=== PATIENT | female | born 1940 | race Caucasian/White ===

== ENCOUNTER → 2016-10-07 | Outpatient (CLI) | payer MEDICARE ==
--- NOTE | 2016-10-15 09:50 | MM ---
Reason for exam: screening (asymptomatic). Last mammogram was performed 10 months ago. History: Patient is postmenopausal. Family history of breast cancer in daughter at age 54. Physical Findings: A clinical breast exam by your physician is recommended on an annual basis and results should be correlated with mammographic findings. MG 3D Screening Mammo W/Cad Bilateral CC and MLO view(s) were taken. Prior study comparison: December 11, 2015, mammogram. August 22, 2014, mammogram. The breast tissue is heterogeneously dense. This may lower the sensitivity of mammography. No significant changes when compared with prior studies. ASSESSMENT: Negative, BI-RAD 1 RECOMMENDATION: Routine screening mammogram of both breasts in 1 year.
== END | disposition home or self-care (01) ==
LOC: RADMAMWWP 10:54
PROVIDERS: ATTEND Family Medicine
DX: Z12.31 Encounter for screening mammogram for malignant neoplasm of breast (principal); Z80.3 Family history of malignant neoplasm of breast
CPT/HCPCS: 77063; G0202

== ENCOUNTER → 2017-02-12 | Outpatient (CLI) | payer MEDICARE ==
--- NOTE | 2017-02-12 11:39 | XR ---
EXAMINATION TYPE: XR chest 2V DATE OF EXAM: 02/12/2017 COMPARISON: 10/29/10 HISTORY: Shortness of breath TECHNIQUE: Frontal and lateral views of the chest are obtained. FINDINGS: Scattered senescent parenchymal changes noted. Hyperinflation compatible with COPD. No evidence for infiltrate. No evidence for atelectasis. Heart size is stable. Mediastinal structures are stable and grossly unremarkable. No evidence for hilar prominence. Degenerative changes dorsal spine. IMPRESSION: 1. No evidence for acute pulmonary disease.
== END | disposition home or self-care (01) ==
LOC: RADXRMAIN 11:10
PROVIDERS: ATTEND Family Medicine
DX: R06.02 Shortness of breath (principal)
CPT/HCPCS: 71020

== ENCOUNTER → 2017-07-07 | Outpatient (CLI) | payer MEDICARE ==
--- NOTE | 2017-07-07 15:21 | XR ---
EXAMINATION TYPE: XR cervical spine comp DATE OF EXAM: 07/07/2017 COMPARISON: NONE HISTORY: Pain TECHNIQUE: Four views are submitted. FINDINGS: The odontoid is intact. There are no compression deformities. The prevertebral soft tissue structur es are within normal limits. There is a vague nodular appearing density in the right suprahilar jorge on. Interstitial changes are noted. Severe degenerative disc disease at levels C3-C7. Severe facet arthropathy with posterior spondylosis . Foraminal encroachment bilaterally at all levels visualized. IMPRESSION: 1. Severe multilevel degenerative disc disease with bilateral foraminal encroachment and marked facet arthropathy. 2. There appears to be subsegmental areas of consolidation and prominent interstitial changes involvi ng the visualized portions of the lung field. More confluent density in the medial margin of the righ t upper lobe is noted. Recommend CT of the chest.
== END | disposition home or self-care (01) ==
LOC: RADXRMAIN 14:50
PROVIDERS: ATTEND Nurse Practitioner
DX: M50.31 Other cervical disc degeneration, high cervical region (principal); M46.82 Other specified inflammatory spondylopathies, cervical region
CPT/HCPCS: 72050

== ENCOUNTER → 2017-07-15 | Outpatient (CLI) | payer MEDICARE ==
[2017-07-15 12:56] LABS: Blood Urea Nitrogen 21 mg/dL (7-17)
--- NOTE | 2017-07-15 13:41 | CT ---
EXAMINATION TYPE: CT chest w con DATE OF EXAM: 07/15/2017 COMPARISON: NONE HISTORY: Patient complains of chest congestion. CT DLP: 146.8 mGycm Automated exposure control for dose reduction was used. CONTRAST: CT scan of the chest is performed with IV Contrast, patient injected with 100 mL of Isovue 300. FINDINGS: LUNGS: The lungs are grossly clear, there is no concerning parenchymal mass or nodule identified. T here is no pleural effusion or pneumothorax seen. The tracheobronchial tree is patent. A 4 mm nodule lingular segment left upper lobe MEDIASTINUM: There are no greater than 1 cm hilar or mediastinal lymph nodes. No pericardial effusi on is seen. There is ectasia of the origin of the right brachiocephalic artery which appears to be f usiform dilated measuring 1.8 cm. OTHER: Hypertrophic and degenerative change of the spine noted. Small hiatal hernia noted. Approxima te 1 cm hypodense lesion right kidney most likely related to a cyst IMPRESSION: 1. 4 mm lingular segment left upper lobe pulmonary nodule. Recommend 6 month follow-up to assess stab ility. 2. No evidence of consolidative pneumonia. 3. Cardiomegaly with marked ectasia of the origin of the brachiocephalic artery as discussed above
== END | disposition home or self-care (01) ==
LOC: RADCTMAIN 12:22
PROVIDERS: ATTEND Family Medicine
DX: R91.1 Solitary pulmonary nodule (principal); I51.7 Cardiomegaly; I77.89 Other specified disorders of arteries and arterioles
CPT/HCPCS: 82565; 84520; 71260; 36415; Q9967

== ENCOUNTER → 2017-08-11 | Outpatient (CLI) | payer MEDICARE ==
--- NOTE | 2017-08-11 16:41 | MR ---
EXAMINATION TYPE: MR cervical spine wo con DATE OF EXAM: 08/11/2017 1:58 PM COMPARISON: NONE HISTORY: Neck pain Multiplanar MultiSpin echo imaging of the cervical spine was performed. Comparison: none C2-C3: No evidence for degenerative disc disease. No disc bulge/herniation or protrusion. No Canal stenosis. Foramina are patent bilaterally. C3-C4: Severe disc desiccation noted. Circumferential disc bulge with ventral and dorsal spondylosis. Disc endplate complex noted posteriorly resulting in effacement of the ventral thecal sac and minima l ventral CORD contact. There is mild central stenosis seen. Left greater than right foraminal encroa chment. C4-C5: Severe disc desiccation noted. Circumferential disc bulge with ventral and dorsal spondylosis. Disc endplate complex noted posteriorly resulting in effacement of the ventral thecal sac and minima l ventral CORD contact. There is mild to moderate central stenosis seen. Bilateral foraminal encroach ment identified. C5-C6: Moderate to severe disc desiccation. Circumferential disc bulge greatest posteriorly. Mild eff acement ventral thecal sac. Bilateral foraminal encroachment. No evidence for central stenosis. Bilat eral foraminal encroachment identified. C6-C7: Moderate disc desiccation. Mild circumferential disc bulge greatest posteriorly. No herniation or central stenosis. Mild bilateral foraminal encroachment. C7-T1: No evidence for degenerative disc disease. No disc bulge/herniation or protrusion. No Canal stenosis. Foramina are patent bilaterally. Cervical segments are intact. There is normal alignment. Cervical spinal cord is of normal signal. Craniovertebral junction relationships are within normal limits. IMPRESSION: 1. Multilevel degenerative disc disease with central stenosis and foraminal encroachment as detailed above.
== END | disposition home or self-care (01) ==
LOC: RADMRIMAIN 13:29
PROVIDERS: ATTEND Nurse Practitioner
DX: M48.02 Spinal stenosis, cervical region (principal); M50.30 Other cervical disc degeneration, unspecified cervical region
CPT/HCPCS: 72141

== ENCOUNTER → 2017-09-10 | Outpatient (CLI) | payer MEDICARE ==
[2017-09-10 09:38] VITALS: BP 123/78; PULSE 59; BMI 26.5
--- NOTE | 2017-09-10 10:58 | P.GSHP ---
History of Present Illness H&P Date: 09/10/17 Patient complains of soreness of the right breast. It started with soreness of her nipple, and has now extended to the entire breast. It has been on going for about one month. The patient states it is always present. Nothing makes it better or worse. It is present in the night and day. The other breast has no abnormal sensation. The patient has no masses or lumps in either breast. No nipple discharge. No trauma or infection to the breast. Patient last mammogram was about one year ago and was benign. The patient does state that she works in her yard and that the pain does appear to be parasternal radiating into the area of the breast. Caffeine: Occasional not daily Nicotine: Negative exposure Chocolate: Patient is ALLERGIC to it and is not exposed to this CT Scan done on 08-11-17 was reviewed with the radiologist which revealed what appeared to be a prominent sternalis muscle on the right family history: 1. daughter: breast cancer diagnosed at 53, metastatic to bones 2. grandmother maternal: colon cancer Past surgical history: 1. Tonsillectomy 2. Appendectomy for ruptured appendix 3. Total abdominal hysterectomy Medical history: 1. Hypothyroidism 2. Hypertension 3. Dysrhythmia in the past 4. Osteopenia 5. 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 ALLERGIES:seasonal allergies - Constitutional Constitutional: Denies chills, Denies fever - EENT Eyes: bilateral as per HPI Ears: bilateral: tinnitus Ears, nose, mouth and throat: Denies headache, Denies sore throat - Breasts Breasts: bilateral: as per HPI - Cardiovascular Cardiovascular: Reports high blood pressure, Denies chest pain, Denies shortness of breath - Respiratory Respiratory: Reports as per HPI - Gastrointestinal Comment: Hemorrhoids that bleed at times, last colonsocopy 2013 no lesions of concern Gastrointestinal: Denies abdominal pain, Denies diarrhea, Denies nausea, Denies vomiting - Genitourinary (Female) Genitourinary: Reports as per HPI, Denies dysuria, Denies hematuria - Menstruation Comment: Patient status post total abdominal hysterectomy including both ovaries, suspect may have had polycystic ovarian disease - Musculoskeletal Comment: arthritis - Integumentary Integumentary: Denies pruritus, Denies rash - Neurological Comment: hands numb at times Neurological: Reports numbness, Denies weakness - Psychiatric Psychiatric: Denies anxiety, Denies depression - Endocrine Comment: hypothyroid - Hematologic/Lymphatic Comment: none - Allergic/Immunologic Allergic/Immunologic: Reports seasonal allergies Past Medical History Past Medical History: No Reported History History of Any Multi-Drug Resistant Organisms: None Reported Past Surgical History: Hysterectomy, Tonsillectomy Additional Past Surgical History / Comment(s): appendix removed Smoking Status: Never smoker Medications and Allergies Home Medications Medication Instructions Recorded Confirmed Type Atenolol [Tenormin] 50 tab PO DAILY 09/10/17 09/10/17 History Pravastatin Sodium [Pravachol] 40 tab PO DAILY 09/10/17 09/10/17 History Pyridoxine HCl (Vitamin B6) [B-6] 200 mg PO DAILY 09/10/17 09/10/17 History Thyroid,Pork [Nature-Throid] 32.5 tab PO DAILY 09/10/17 09/10/17 History Surgical - Exam Vital Signs Pulse BP Pulse Ox 59 L 123/78 99 09/10/17 09:32 09/10/17 09:32 09/10/17 09:32 - General well developed, well nourished, moderate distress - Eyes normal ocular movement, no icteric - ENT no hearing loss, no congestion - Neck no masses, trachea midline - Respiratory normal respiratory effort, clear to auscultation - Cardiovascular Heart Sounds: normal: S1, S2 - Abdomen Abdomen: soft, non tender, bowel sounds - Integumentary prior resection of skin cancer right chest skin changes apear to have keratosis of the upper arms - Neurologic no disoriented, no combative - Musculoskeletal normal gait - Psychiatric oriented to time, oriented to person, oriented to place, speech is normal, memory intact right breast: no masses right axilla: no adenopathy of concern left breast: no masses left axilla: no adenopathy fo concern pain along the right parasternal region Results Computed tomography scan 08/11/2017 reviewed with radiology, what appears to be prominent sternalis muscle on the right with possible inflammation Assessment and Plan Assessment: Impression/plan: 1. Right breast pain, probably related to costochondritis, inflamed right sternalis muscle 2. Hypothyroidism 3. Probable costochondritis 4. Hypertension 5. Dysrhythmia 6. Environmental ALLERGIES 7. Osteopenia Plan: 1. Conservative management of costochondritis with anti-inflammatories 2. Bilateral mammogram 3. Ultrasound of right sternalis muscle 4. Follow-up in 1 month Cc: Dr. Desai
== END ==
LOC: WWCWWP 09:25
PROVIDERS: ATTEND Surgery
DX: N64.4 Mastodynia (principal); M85.80 Other specified disorders of bone density and structure, unspecified site; I10 Essential (primary) hypertension; E03.9 Hypothyroidism, unspecified

== ENCOUNTER → 2017-10-11 | Outpatient (CLI) | payer MEDICARE ==
--- NOTE | 2017-10-13 13:03 | MM ---
Reason for exam: clinical finding. Last mammogram was performed 1 year ago. History: Patient is postmenopausal and history of other cancer. Family history of breast cancer in daughter at age 54. Physical Findings: Nurse did not find any significant physical abnormalities on exam. MG 3D Diag Mammo W/Cad SOPHIE Bilateral CC and MLO view(s) were taken. Prior study comparison: October 07, 2016, bilateral MG 3d screening mammo w/cad. December 11, 2015, mammogram. The breast tissue is heterogeneously dense. This may lower the sensitivity of mammography. Finding: There are typically benign round calcifications in the right breast. There is no discrete abnormality. These results were verbally communicated with the patient and result sheet given to the patient on 10/11/17. ASSESSMENT: Benign, BI-RAD 2 RECOMMENDATION: Routine screening mammogram of both breasts in 1 year. Manage on a clinical basis with regard to pain.
--- NOTE | 2017-10-13 13:06 | USB ---
Reason for exam: clinical finding. History: Patient is postmenopausal and history of other cancer. Family history of breast cancer in daughter at age 54. US Breast RT Right complete breast ultrasound includes all four quadrants, the retroareolar region and axilla. Finding demonstrates a 0.3 x 0.2 x 0.4cm lesion too small to characterize at 4 o'clock and duct ectasia at the posterior nipple. These results were verbally communicated with the patient and result sheet given to the patient on 10/11/17. ASSESSMENT: Benign, BI-RAD 2 RECOMMENDATION: Routine screening mammogram of both breasts in 1 year. Manage on a clinical basis with regard to pain.
== END | disposition home or self-care (01) ==
LOC: RADMAMWWP 08:38
PROVIDERS: ATTEND Surgery
DX: N64.4 Mastodynia (principal)
CPT/HCPCS: 77066; 76641; G0279; 77062

== ENCOUNTER → 2017-10-14 | Outpatient (CLI) | payer MEDICARE ==
[2017-10-14 11:47] VITALS: BP 137/60; PULSE 55; BMI 26.5
--- NOTE | 2017-10-14 12:04 | P.GSHP ---
History of Present Illness H&P Date: 10/14/17 Patient was seen on 09/10/17 for a complaint of pain in her right breast. At that time it was felt she had possible costochondritis and on her CAT scan was noted to have a prominent sternalis muscle. The patient used essential oils to the area of discomfort in the right chest wall and has had complete resolution. She is not complaining of any pain in her breast at this time. Of importance is the fact that she underwent a bilateral mammogram and an ultrasound of the right breast on 10-11-17. No lesions of concern were identified and she is recommended to have repeat bilateral mammogram in 1 year's time. Lungs: Clear Heart: Regular rate and rhythm Right breast examination: No dominant masses or nodules of concern there is no pain in her breast at this time Right chest wall: There is no discomfort at the costochondral region this has resolved and no discomfort in the left costochondral region Impression/plan: 1. Fibrocystic breast changes 2. Costochondritis resolved 3. Computed tomography scan changes being followed by Dr. Desai 4. Patient can follow-up here in 1 year with bilateral repeat mammogram for physician exam or may follow with Dr. Desai CC: Dr. Desai Past Medical History Past Medical History: No Reported History History of Any Multi-Drug Resistant Organisms: None Reported Past Surgical History: Hysterectomy, Tonsillectomy Additional Past Surgical History / Comment(s): appendix removed Smoking Status: Never smoker Medications and Allergies Home Medications Medication Instructions Recorded Confirmed Type Atenolol [Tenormin] 50 tab PO DAILY 09/10/17 10/14/17 History Pravastatin Sodium [Pravachol] 40 tab PO DAILY 09/10/17 10/14/17 History Pyridoxine HCl (Vitamin B6) [B-6] 200 mg PO DAILY 09/10/17 10/14/17 History Thyroid,Pork [Nature-Throid] 32.5 tab PO DAILY 09/10/17 10/14/17 History Surgical - Exam Vital Signs Pulse BP Pulse Ox 55 L 137/60 99 10/14/17 11:40 10/14/17 11:40 10/14/17 11:40
== END | disposition home or self-care (01) ==
LOC: WWCWWP 11:01
PROVIDERS: ATTEND Surgery
DX: Z53.9 Procedure and treatment not carried out, unspecified reason (principal)

== ENCOUNTER → 2017-12-17 | Outpatient (CLI) | payer MEDICARE ==
--- NOTE | 2017-12-17 14:25 | CT ---
EXAMINATION TYPE: CT chest w con DATE OF EXAM: 12/17/2017 COMPARISON: 07/15/2017 HISTORY: Pulmonary nodule CT DLP: 430 mGycm. Automated Exposure Control for Dose Reduction was Utilized. TECHNIQUE: CT scan of the thorax is performed following with IV Contrast, patient injected with 100 ml mL of Isovue 300. FINDINGS: LUNGS: There is a stable 4 mm nodule within the left upper lobe peripherally on series 4 image 26. Co ntinued follow-up is recommended. Bibasilar pleural-parenchymal scarring is present. The lungs are gr ossly clear, there is no concerning parenchymal mass or additional new nodule identified. There is no pleural effusion or pneumothorax seen. The tracheobronchial tree is patent. MEDIASTINUM: There are no greater than 1 cm hilar or mediastinal lymph nodes. No pericardial effusi on is seen. Ascending thoracic aorta and main pulmonary artery are within normal limits of size. Hea rt is mildly enlarged. Minimal coronary artery calcifications are seen. OTHER: There is a small hiatal hernia. Probable lymph node is seen adjacent to the left adrenal gland cyst does not appear contiguous with the adrenal gland on reformats. This is prominent measuring 7 m m in short axis. Probable right renal cyst is seen of the superior pole and incompletely imaged. Mult ilevel degenerative changes of the thoracic spine are seen and there is an exaggerated thoracic kypho sis. Few punctate foci that are hypoattenuated of the hepatic parenchyma are too small to accurately characterize. IMPRESSION: 1. Unchanged 4 mm left pulmonary nodule. Continued surveillance is recommended with CT in 12 months g iven the size. 2. Probable left perirenal lymph node. Three-phase enhanced CT abdomen could be performed to further assess the kidneys and evaluate for any other prominent/enlarged lymph nodes.
== END | disposition home or self-care (01) ==
LOC: RADCTMAIN 11:45
PROVIDERS: ATTEND Family Medicine
DX: R91.1 Solitary pulmonary nodule (principal)
CPT/HCPCS: 82565; 84520; 71260; 36415; Q9967

== ENCOUNTER → 2018-08-17 | Outpatient (CLI) | payer MEDICARE ==
--- NOTE | 2018-08-17 11:32 | MM ---
Reason for exam: clinical finding. Last mammogram was performed 10 months ago. History: Patient is postmenopausal and history of other cancer. Family history of breast cancer in daughter at age 54. Physical Findings: Nurse Summary: 1cm nodule in the left breast at 9 o'clock (nurse dw). MG 3D Diag Mammo W/Cad SOPHIE Bilateral CC and MLO view(s) were taken. Prior study comparison: October 11, 2017, bilateral MG 3d diag mammo w/cad SOPHIE. October 07, 2016, bilateral MG 3d screening mammo w/cad. The breast tissue is heterogeneously dense. This may lower the sensitivity of mammography. No suspicious abnormality. Subtle 6mm lucent superficial probable lipoma deep to the palpable marker in the left lower inner quadrant. These results were verbally communicated with the patient and result sheet given to the patient on 08/17/18. ASSESSMENT: Incomplete: need additional imaging evaluation, BI-RAD 0 RECOMMENDATION: Ultrasound of the left breast. (palpable)
--- NOTE | 2018-08-17 11:33 | USB ---
Reason for exam: additional evaluation requested from abnormal screening. History: Patient is postmenopausal and history of other cancer. Family history of breast cancer in daughter at age 54. US Breast Limited LT Left limited breast ultrasound including focal area of concern, retroareolar and axilla demonstrates a 1.0 x 0.4 x 0.7cm oval, hyperechoic, lipoma at 9 o'clock BB, correlates with mammographic finding. These results were verbally communicated with the patient and result sheet given to the patient on 08/17/18. ASSESSMENT: Benign, BI-RAD 2 RECOMMENDATION: Routine screening mammogram of both breasts in 1 year.
== END | disposition home or self-care (01) ==
LOC: RADMAMWWP 09:57
PROVIDERS: ATTEND Family Medicine
DX: N63.20 Unspecified lump in the left breast, unspecified quadrant (principal); N23 Unspecified renal colic; N28.9 Disorder of kidney and ureter, unspecified; R31.9 Hematuria, unspecified
CPT/HCPCS: 77066; 76642; G0279; 77062

== ENCOUNTER → 2019-02-15 | Outpatient (CLI) | payer MEDICARE ==
[2019-02-15 13:09] LABS: African American GFR (CKD) >90 (>60 ml/min/1.73 sqM); Blood Urea Nitrogen 20 mg/dL (7-17); Non-African American GFR(CKD) 86 (>60 ml/min/1.73 sqM)
--- NOTE | 2019-02-15 13:51 | CT ---
EXAMINATION TYPE: CT chest abdomen w con DATE OF EXAM: 02/15/2019 COMPARISON: 02/10/[address] chest 12/17/2017 HISTORY: Nonspecific mesenteric lymphadenitis. Abnormal finding of lung field, 4mm chest nodule and 7 mm left adrenal nodule. Both for recheck. CT DLP: 501.5 mGycm CONTRAST: CT scan of the chest, abdomen is performed with Oral Contrast and with IV Contrast, patient injected with 100 mL of Isovue M300. CT Chest: LUNGS: The lungs are clear and free of infiltrate or atelectasis. Stable 4 mm left upper lobe pulmona ry nodule image 26. No pleural effusion or CT evidence of interstitial lung disease. MEDIASTINUM: Thoracic aorta is of normal caliber. The heart is not enlarged. No evidence for media stinal mass or adenopathy. HILAR STRUCTURES: No evidence for mass. No hilar adenopathy is appreciated. OTHER: No significant abnormality. CONTRAST CT ABDOMEN FINDINGS: LIVER/GB: No calcified gallstones. No space occupying hepatic lesion. Biliary tree is of normal ca liber. PANCREAS: No inflammation. No distinct mass. SPLEEN: No splenic enlargement. No lesion seen. ADRENALS: Stable left adrenal nodule measuring 7 mm. No right adrenal nodule identified. No thickenin g. KIDNEYS/BLADDER: No hydronephrosis. Nonobstructing calculus mid pole right kidney. No distinct solid renal mass. 9 mm cortical cyst midpole right kidney. BOWEL: Normal appendix. Normal bowel caliber. No inflammation. LYMPH NODES: No greater than 1cm abdominal or pelvic lymph nodes are appreciated. AORTA: No significant abnormality. OSSEOUS STRUCTURES: No significant abnormality is seen. OTHER: No significant additional abnormality is seen. IMPRESSION: 1. Stable left-sided pulmonary nodule. 2. Stable left adrenal nodule likely reflecting adenoma.
== END | disposition home or self-care (01) ==
LOC: RADCTMAIN 12:25
PROVIDERS: ATTEND Family Medicine
DX: E27.8 Other specified disorders of adrenal gland (principal); R91.1 Solitary pulmonary nodule
CPT/HCPCS: 82565; 84520; 71260; 74160; 36415; Q9967 ×2

== ENCOUNTER → 2019-04-19 | Outpatient (CLI) | payer MEDICARE ==
--- NOTE | 2019-04-19 12:08 | ECHOF ---
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 This was a technically adequate study. The left ventricular size is normal. There is borderline concentric left ventricular hypertrophy. Overall left ventricular systolic function is normal with, an EF between 55 - 60 %. The diastolic filling pattern is normal for the age of the patient 14.96. The right ventricle is normal in size. LA is midly dilated 29-33ml/m2. The right atrial size is normal. Interatrial and interventricular septum intact. The aortic valve is trileaflet and appears structurally normal. There is no evidence of aortic regu rgitation. There is no evidence of aortic stenosis. Mild mitral regurgitation is present. Mild tricuspid regurgitation present. There is mild pulmonary hypertension. The right ventricular systolic pressure, as measured by Doppler, is 36.58mmHg. Trace/mild (physiologic) pulmonic regurgitation. The aortic root size is normal. Normal inferior vena cava with normal inspiratory collapse consistent with estimated right atrial pre ssure of 5 mmHg. There is no pericardial effusion. CONCLUSIONS -------- 1. Sinus rhythm with extra systolic beats. 2. This was a technically adequate study. 3. The left ventricular size is normal. 4. There is borderline concentric left ventricular hypertrophy. 5. Overall left ventricular systolic function is normal with, an EF between 55 - 60 %. 6. The diastolic filling pattern is normal for the age of the patient 14.96 7. The right ventricle is normal in size. 8. LA is midly dilated 29-33ml/m2. 9. The right atrial size is normal. 10. Interatrial and interventricular septum intact. 11. The aortic valve is trileaflet and appears structurally normal. 12. There is no evidence of aortic regurgitation. 13. There is no evidence of aortic stenosis. 14. Mild mitral regurgitation is present. 15. Mild tricuspid regurgitation present. 16. There is mild pulmonary hypertension. 17. The right ventricular systolic pressure, as measured by Doppler, is 36.58mmHg. 18. Trace/mild (physiologic) pulmonic regurgitation. 19. The aortic root size is normal. 20. Normal inferior vena cava with normal inspiratory collapse consistent with estimated right atrial pressure of 5 mmHg. 21. There is no pericardial effusion. MANAGER OF ADMINISTRATION: Beatrice Delgado RDCS
== END | disposition home or self-care (01) ==
LOC: RADECHMAIN 08:31
PROVIDERS: ATTEND Family Medicine
DX: I08.1 Rheumatic disorders of both mitral and tricuspid valves (principal); I27.20 Pulmonary hypertension, unspecified
CPT/HCPCS: 93306

== ENCOUNTER → 2020-01-15 | Outpatient (CLI) | payer MEDICARE ==
[2020-01-15 13:36] LABS: African American GFR (CKD) >90 (>60 ml/min/1.73 sqM); Blood Urea Nitrogen 14 mg/dL (7-17); Non-African American GFR(CKD) 86 (>60 ml/min/1.73 sqM)
--- NOTE | 2020-01-15 14:41 | CT ---
EXAMINATION TYPE: CT chest w con DATE OF EXAM: 01/15/2020 COMPARISON: CT chest 02/15/2019, 07/15/2017. HISTORY: Lung nodule. CT DLP: 149.3 mGycm Automated exposure control for dose reduction was used. CONTRAST: CT scan of the chest is performed with IV Contrast, patient injected with 100 mL of Isovue M300. FINDINGS: LUNGS: Unchanged 4 mm pulmonary nodule of the left upper lobe (4:24). Lungs are grossly clear. No ple ural effusion. No pneumothorax. The tracheobronchial tree is patent. MEDIASTINUM/SOFT TISSUES: No axillary, hilar, or mediastinal lymphadenopathy greater than 1 cm. Cardi ac size is mildly enlarged. No pericardial effusion. No thoracic aortic aneurysm. Tortuous course of the descending thoracic aorta. UPPER ABDOMEN: Small hiatal hernia. Unchanged nodule posterior to the left adrenal gland measuring up to 7 mm, which may represent lymph node, versus adenoma without clear connection to the adrenal glan d. OSSEOUS: Increased thoracic kyphosis. IMPRESSION: Left upper lobe 4 mm pulmonary nodule is unchanged versus 07/15/2017 comparison, most likely benign.
== END | disposition home or self-care (01) ==
LOC: RADCTMAIN 12:55
PROVIDERS: ATTEND Family Medicine
DX: R91.1 Solitary pulmonary nodule (principal)
CPT/HCPCS: 82565; 84520; 71260; 36415; Q9967

== ENCOUNTER → 2020-02-22 | Outpatient (CLI) | payer MEDICARE ==
[~2020-02-22] MED LIST: REGADENOSON 0.4 MG/5 ML SYRINGE IV ONE
--- NOTE | 2020-02-22 12:25 | P.STRESS ---
- Stress Test Note Stress Test Results/Findings: Exam Performed: NM stress lexiscan cardiolite Exam Date: 02/22/20 Reason for Exam: DYSPNEA Height: 5 ft 3 in Weight: 69.4 kg Protocol: LEXISCAN Stage: NA Duration of Exercise: NA Resting Heart Rate: 66 Resting Blood Pressure: 147/86 Maximum Achieved Heart Rate: 81 Maximum Achieved Blood Pressure: 147/86 85% PMHR: NA 100% PMHR: NA METS: NA Technologist Comment: Stress Test Results/Findings: At baseline EKG showed normal sinus rhythm, normal axis, nonspecific T-wave inversions in V3 and V4. Patient recieved IV infusion of Lexiscan 0.4mg and at peak infusion EKG showed no significant change from baseline. Conclusions: 1. Normal EKG response to Lexiscan infusion 2. Nuclear imaging to be reported separately.
--- NOTE | 2020-02-22 16:10 | NM ---
EXAMINATION TYPE: NM stress lexiscan cardiolite DATE OF EXAM: 02/22/2020 COMPARISON: NONE HISTORY: Cardiac arrhythmia, dyspnea TECHNIQUE: After the intravenous administration of 9.48 mCi Tc 99m Sestamibi - Cardiolite resting SP ECT images acquired 50 minutes post injection. The patient received 0.4mg Lexiscan, 26.3 mCi Tc 99m Sestamibi - Stress images obtained [address] injection FINDINGS: No stress-induced ischemic changes evident. Gated wall motion is normal polar maps are norm al. Ejection fraction of 71% is normal IMPRESSION: 1. Normal stress myocardial study.
== END | disposition home or self-care (01) ==
LOC: RADNMMAIN 07:49
PROVIDERS: ATTEND Family Medicine
DX: I49.9 Cardiac arrhythmia, unspecified (principal)
CPT/HCPCS: 93017; 78452; A9500; J2785

== ENCOUNTER → 2021-01-15 | Outpatient (CLI) | payer MEDICARE ==
--- NOTE | 2021-01-17 15:05 | MM ---
Reason for exam: screening (asymptomatic). Last mammogram was performed 2 years and 5 months ago. History: Patient is postmenopausal and history of other cancer. Family history of breast cancer in daughter at age 54. Physical Findings: A clinical breast exam by your physician is recommended on an annual basis and results should be correlated with mammographic findings. MG 3D Screening Mammo W/Cad Bilateral CC and MLO view(s) were taken. Prior study comparison: August 17, 2018, bilateral MG 3d diag mammo w/cad [facility]. October 11, 2017, bilateral MG 3d diag mammo w/cad [facility]. The breast tissue is heterogeneously dense. This may lower the sensitivity of mammography. Benign appearing bilateral calcifications. No significant changes when compared with prior studies. ASSESSMENT: Benign, BI-RAD 2 RECOMMENDATION: Routine screening mammogram of both breasts in 1 year.
== END | disposition home or self-care (01) ==
LOC: RADMAMWWP 15:55
PROVIDERS: ATTEND Family Medicine
DX: Z12.31 Encounter for screening mammogram for malignant neoplasm of breast (principal)
CPT/HCPCS: 77063; 77067

== ENCOUNTER 2021-06-25 14:39 | Observation (INO) | payer MEDICARE ==
[2021-06-25 14:57] VITALS: TEMP 97.9
--- NOTE | 2021-06-25 16:00 | ED ---
Arrhythmia/Palpitations HPI - General Chief Complaint: Arrhythmia/Palpitations Stated Complaint: AFib, Shortness of breath Time Seen by Provider: 06/25/21 15:16 Source: patient Mode of arrival: wheelchair Limitations: no limitations - History of Present Illness Initial Comments: Jazmin is a pleasant 80-year-old female who presents to ER today from her primary care office after an EKG revealed new onset of atrial fibrillation with slow response. Patient states that she has a history of being told she has an irregular heartbeat and 15 cardiology out of [facility] in the past however never been told she has A. fib and is not on any medications. Patient states for the past 3 days she's been feeling very short of breath, is gaining about 1 pound today has noticed that her lower extremities are very swollen and has had labile blood pressures with pulse rates as low as 42. She called and scheduled a follow-up appointment with her certified medical dosimetrist next Wednesday and saw her primary care today who noted that her EKG was A. fib and advised her to come to the hospital for evaluation. Patient is not experiencing chest pain or palpitations. She does not feel like her heart is racing. - Related Data Home Medications Medication Instructions Recorded Confirmed Pravastatin Sodium [Pravachol] 40 mg PO HS 09/10/17 06/25/21 atenoloL [Tenormin] 50 mg PO HS 09/10/17 06/25/21 Cholecalciferol [Vitamin D3 (25 50 mcg PO MOWEFR 06/25/21 06/25/21 Mcg = 1000 Iu)] Cranberry 8400mg 1 tab PO BID 06/25/21 06/25/21 Loratadine 10 mg PO DAILY 06/25/21 06/25/21 Tart Quintero 425mg 1 tab PO BID 06/25/21 06/25/21 Thyroid, Pork [[place] Thyroid] 30 mg PO DAILY 06/25/21 06/25/21 Ubiquinol 50mg 1 cap PO HS 06/25/21 06/25/21 Vitamin C/Biotin [Hair, Skin and 2 tab PO DAILY 06/25/21 06/25/21 Nails Chew] Allergies Allergy/AdvReac Type Severity Reaction Status Date / Time chocolate flavor Allergy Itching Verified 06/25/21 17:15 vancomycin Allergy Rash/Hives Verified 06/25/21 17:15 wheat AdvReac Bloating Verified 06/25/21 17:15 Review of Systems ROS Statement: Those systems with pertinent positive or pertinent negative responses have been documented in the HPI. ROS Other: All systems not noted in ROS Statement are negative. Past Medical History Past Medical History: Hypertension History of Any Multi-Drug Resistant Organisms: None Reported Past Surgical History: Appendectomy, Hysterectomy, Tonsillectomy Additional Past Surgical History / Comment(s): appendix removed Past Psychological History: No Psychological Hx Reported Smoking Status: Never smoker Past Alcohol Use History: None Reported Past Drug Use History: None Reported General Exam - General Exam Comments Initial Comments: Physical Exam GENERAL: Patient is well-developed and well-nourished. Patient is nontoxic and well- hydrated and is in no distress. HENT: Normocephalic, Atraumatic. EYES: PERRL, EOMI PULMONARY: Unlabored respirations. No audible rales rhonchi or wheezing was noted. CARDIOVASCULAR: Irregularly irregular, slow 1+ pitting edema bilateral lower extremities ABDOMEN: Soft and nontender with normal bowel sounds. SKIN: Skin is clear with no lesions or rashes and otherwise unremarkable. : Deferred NEUROLOGIC: Patient is alert and oriented x3. Moving all extremities spontaneously MUSCULOSKELETAL: Significant thoracic kyphosis PSYCHIATRIC: Normal psychiatric evaluation. Limitations: no limitations Course Vital Signs 06/25/21 06/25/21 06/25/21 14:54 17:03 17:17 Temperature 97.9 F Pulse Rate 63 56 L 64 Pulse Rate [ Road Gang Supervisor ] Respiratory 18 18 18 Rate Blood Pressure 182/82 161/64 161/64 O2 Sat by Pulse 97 94 L 96 Oximetry 06/25/21 06/25/21 18:41 18:42 Temperature Pulse Rate 65 Pulse Rate [ 65 [address] Gang Supervisor ] Respiratory 18 Rate Blood Pressure 167/86 O2 Sat by Pulse 94 L Oximetry EKG Findings - EKG Comments: EKG Findings:: EKG was obtained due to complaint of shortness of breath and report of abnormal outpatient EKG. EKG was obtained at 1526, rate is 59 rhythm is a narrow complex irregular bradycardia, there is no obvious P waves before QRS, this appears to be in atrial fibrillation with slow ventricular response. No evidence of acute ischemia or infarction. Medical Decision Making - Medical Decision Making Patient was seen and evaluated upon arrival to the emergency department, EKG was reviewed and is atrophic relation with a slow response, physical exam is consistent with congestive heart failure patient has bilateral lower extremity edema Labs are obtained, BNP is significantly elevated, troponin is undetectable, TSH is very low, free T4 is pending She was started on heparin for new onset A. fib Lasix was ordered for CHF Patient care was discussed with Dr. Cosme who accepts the admission with consul t to cardiology for new onset atrial fibrillation and heart failure - Lab Data Result diagrams: 06/25/21 16:14 06/25/21 17:15 Lab Results 06/25/21 06/25/21 06/25/21 Range/Units 16:14 16:14 16:14 WBC 7.5 (3.8-10.6) k/uL RBC 4.80 (3.80-5.40) m/uL Hgb 13.5 (11.4-16.0) gm/dL Hct 41.9 (34.0-46.0) % MCV 87.4 (80.0-100.0) fL MCH 28.1 (25.0-35.0) pg MCHC 32.1 (31.0-37.0) g/dL RDW 14.0 (11.5-15.5) % Plt Count 256 (150-450) k/uL MPV 7.0 Neutrophils % 70 % Lymphocytes % 20 % Monocytes % 6 % Eosinophils % 2 % Basophils % 1 % Neutrophils # 5.2 (1.3-7.7) k/uL Lymphocytes # 1.5 (1.0-4.8) k/uL Monocytes # 0.5 (0-1.0) k/uL Eosinophils # 0.1 (0-0.7) k/uL Basophils # 0.1 (0-0.2) k/uL PT 10.7 (9.0-12.0) sec INR 1.0 (<1.2) APTT 24.1 (22.0-30.0) sec Sodium (137-145) mmol/L Potassium (3.5-5.1) mmol/L Chloride (98-107) mmol/L Carbon Dioxide (22-30) mmol/L Anion Gap mmol/L BUN (7-17) mg/dL Creatinine (0.52-1.04) mg/dL Est GFR (CKD-EPI)AfAm (>60 ml/min/1.73 sqM) Est GFR (CKD-EPI)NonAf (>60 ml/min/1.73 sqM) Glucose (74-99) mg/dL Calcium (8.4-10.2) mg/dL Magnesium (1.6-2.3) mg/dL Total Bilirubin (0.2-1.3) mg/dL AST (14-36) U/L ALT (4-34) U/L Alkaline Phosphatase (38-126) U/L Troponin I (0.000-0.034) ng/mL NT-Pro-B Natriuret Pep 1780 pg/mL Total Protein (6.3-8.2) g/dL Albumin (3.5-5.0) g/dL TSH (0.465-4.680) mIU/L 06/25/21 06/25/21 Range/Units 17:15 17:15 WBC (3.8-10.6) k/uL RBC (3.80-5.40) m/uL Hgb (11.4-16.0) gm/dL Hct (34.0-46.0) % MCV (80.0-100.0) fL MCH (25.0-35.0) pg MCHC (31.0-37.0) g/dL RDW (11.5-15.5) % Plt Count (150-450) k/uL MPV Neutrophils % % Lymphocytes % % Monocytes % % Eosinophils % % Basophils % % Neutrophils # (1.3-7.7) k/uL Lymphocytes # (1.0-4.8) k/uL Monocytes # (0-1.0) k/uL Eosinophils # (0-0.7) k/uL Basophils # (0-0.2) k/uL PT (9.0-12.0) sec INR (<1.2) APTT (22.0-30.0) sec Sodium 139 (137-145) mmol/L Potassium 4.2 (3.5-5.1) mmol/L Chloride 104 (98-107) mmol/L Carbon Dioxide 28 (22-30) mmol/L Anion Gap 7 mmol/L BUN 15 (7-17) mg/dL Creatinine 0.65 (0.52-1.04) mg/dL Est GFR (CKD-EPI)AfAm >90 (>60 ml/min/1.73 sqM) Est GFR (CKD-EPI)NonAf 86 (>60 ml/min/1.73 sqM) Glucose 85 (74-99) mg/dL Calcium 9.4 (8.4-10.2) mg/dL Magnesium 1.9 (1.6-2.3) mg/dL Total Bilirubin 0.7 (0.2-1.3) mg/dL AST 20 (14-36) U/L ALT 17 (4-34) U/L Alkaline Phosphatase 81 (38-126) U/L Troponin I <0.012 (0.000-0.034) ng/mL NT-Pro-B Natriuret Pep pg/mL Total Protein 6.8 (6.3-8.2) g/dL Albumin 4.0 (3.5-5.0) g/dL TSH 0.431 L (0.465-4.680) mIU/L Disposition Clinical Impression: New onset a-fib, New onset of congestive heart failure Disposition: ADMITTED IP TO THIS HOSP Condition: Serious Is patient prescribed a controlled substance at d/c from ED?: No
[2021-06-25 16:18] LABS: Basophils # (A) 0.1 k/uL (0-0.2); Basophils % (A) 1 %; Eosinophils # (A) 0.1 k/uL (0-0.7); Eosinophils % (A) 2 %; HCT 41.9 % (34.0-46.0); HGB 13.5 gm/dL (11.4-16.0); Lymphocytes # (A) 1.5 k/uL (1.0-4.8); Lymphocytes % (A) 20 %; MCH 28.1 pg (25.0-35.0); MCHC 32.1 g/dL (31.0-37.0); MCV 87.4 fL (80.0-100.0); Monocytes # (A) 0.5 k/uL (0-1.0); Monocytes % (A) 6 %; Neutrophils # (A) 5.2 k/uL (1.3-7.7); Neutrophils % (A) 70 %; Platelet Count 256 k/uL (150-450); WBC 7.5 k/uL (3.8-10.6)
[2021-06-25 16:28] LABS: Partial Thromboplastin Time 24.1 sec (22.0-30.0); Prothrombin Time 10.7 sec (9.0-12.0)
--- NOTE | 2021-06-25 16:49 | XR ---
EXAMINATION TYPE: XR chest 2V DATE OF EXAM: 06/25/2021 COMPARISON: 02/12/2017 HISTORY: Dysrhythmia TECHNIQUE: 2 views FINDINGS: There is some blunting of the costophrenic angles. There is no gross heart failure. Heart i s slightly enlarged. There are no hilar masses. Bony thorax is intact. There is some increased densit y in the right upper lobe above the right pulmonary hilum. There are calcified granulomata in the med iastinum. IMPRESSION: There are small pleural effusions which are new compared to old exam. No obvious heart fa ilure. Cardiomegaly increased. There is possible new small infiltrate in the medial right upper lobe compared to old exam.
[2021-06-25] MEDS ORDERED: HEPARIN SODIUM 1,000 UN/ML (10ML VL) IV ONE (17:12)
[2021-06-25] MEDS ORDERED: HEPARIN SODIUM 1,000 UN/ML (10ML VL) IV PRN (17:12)
[2021-06-25] MEDS ORDERED: HEPARIN SOD,PORK IN 0.45% NACL 25,000 UNIT in 0.45% NACL 1 250ML.BAG IV SCH (17:15)
[2021-06-25] MEDS ORDERED: FUROSEMIDE 10 MG/ML 2 ML VIAL IV STA (17:23)
[2021-06-25 17:36] LABS: ALT 17 U/L (4-34); AST 20 U/L (14-36); African American GFR (CKD) >90 (>60 ml/min/1.73 sqM); Alkaline Phosphatase 81 U/L (38-126); Anion Gap 7 mmol/L; Blood Urea Nitrogen 15 mg/dL (7-17); Calcium 9.4 mg/dL (8.4-10.2); Carbon Dioxide 28 mmol/L (22-30); Chloride 104 mmol/L (98-107); Glucose 85 mg/dL (74-99); Magnesium 1.9 mg/dL (1.6-2.3); Non-African American GFR(CKD) 86 (>60 ml/min/1.73 sqM); Potassium 4.2 mmol/L (3.5-5.1); Sodium 139 mmol/L (137-145); Total Bilirubin 0.7 mg/dL (0.2-1.3); Total Protein 6.8 g/dL (6.3-8.2)
[2021-06-25] MEDS ORDERED: FUROSEMIDE 10 MG/ML 4 ML VIAL IV SCH (18:45)
[2021-06-25] MEDS ORDERED: FUROSEMIDE 10 MG/ML 2 ML VIAL IV ONE (20:15)
[2021-06-26] MEDS ORDERED: FUROSEMIDE 10 MG/ML 4 ML VIAL IV SCH (06:00)
[2021-06-26 06:12] LABS: Basophils % (A) 1 %; Eosinophils # (A) 0.2 k/uL (0-0.7); Eosinophils % (A) 3 %; HCT 39.6 % (34.0-46.0); HGB 12.5 gm/dL (11.4-16.0); Lymphocytes # (A) 1.6 k/uL (1.0-4.8); Lymphocytes % (A) 22 %; MCH 27.9 pg (25.0-35.0); MCHC 31.5 g/dL (31.0-37.0); MCV 88.8 fL (80.0-100.0); Mean Platelet Volume 7.1; Monocytes # (A) 0.6 k/uL (0-1.0); Monocytes % (A) 8 %; Neutrophils # (A) 4.6 k/uL (1.3-7.7); Neutrophils % (A) 64 %; Platelet Count 201 k/uL (150-450); RBC 4.46 m/uL (3.80-5.40); RDW 13.9 % (11.5-15.5); WBC 7.3 k/uL (3.8-10.6)
[2021-06-26 06:26] LABS: INR 1.1 (<1.2); Partial Thromboplastin Time 48.7 sec (22.0-30.0); Prothrombin Time 11.5 sec (9.0-12.0)
[2021-06-26] MEDS ORDERED: THYROID, PORK 30 MG TAB PO SCH (09:00)
[2021-06-26] MEDS ORDERED: LORATADINE 10 MG TAB PO SCH (09:00)
[2021-06-26] MEDS ORDERED: CRANBERRY 8400 MG PO SCH (09:00)
[2021-06-26] MEDS ORDERED: NON FORMULARY DRUG (Vitamin C/Biotin [Hair, Skin And Nails Chew] 1 EACH Tab.Chew) PO SCH (09:00)
[2021-06-26] MEDS ORDERED: TART CHERRY PO SCH (09:00)
--- NOTE | 2021-06-26 10:26 | P.HPIM ---
History of Present Illness H&P Date: 06/26/21 HISTORY OF PRESENT ILLNESS This is a 80-year-old female patient of Steven López NP with past medical history of hypertension, hyperlipidemia, hypothyroidism. Patient follows with Dr. Roxana Mendoza bench technician at [facility] but she has not seen him for the past 3 years as she was released to follow with her PCP only. She does have an appointment with him next week though. She was at her appointment with PCP and developed shortness of breath was unable to take more than 2 steps, palpitations, leg swelling and there is concern for new onset of atrial fibri llation patient was sent to the hospital. She denies any history of atrial fibrillation but has been told she has irregular heartbeat. She denies history of heart failure. She has had a stress test and echocardiogram done in the past, no heart catheterization. She states she sometimes has pain in her bilateral arms that was related to her neck and follows with a chiropractor. She denies any chest pain. Patient came into [facility] emergency center for evaluation and found to be afebrile, heart rate in the 50s and 60s, blood pressure initially 182/82, pulse ox 97% on room air. CBC was unremarkable. Electrolytes and renal function normal. ProBNP 1780. Liver function tests normal. Troponin negative. TSH 0.431. Chest x-ray reveals small pleural effusions which are new. No obvious heart failure. Cardiomegaly increased. Possible small infiltrate in the medial right upper lobe. Patient was started on heparin drip, IV Lasix 40 mg every 12 hours, admitted to the cardiac stent done unit and cardiology consult requested. REVIEW OF SYSTEMS Constitutional: No fever, no chills, no night sweats. No weight change. No weakness, fatigue or lethargy. No daytime sleepiness. EENT: No headache. No blurred vision or double vision, no loss of vision. No loss of Hearing, no ringing in the ears, no dizziness. No nasal drainage or congestion. No epistaxis. No sore throat. Lung: Reports shortness of breath, cough, no sputum production. No wheezing. Cardiovascular: No chest pain, reports lower extremity edema. Reports palpitations. No paroxysmal nocturnal dyspnea. No orthopnea. No lightheadedness or dizziness. No syncopal episodes. Abdominal: No abdominal pain. No nausea, vomiting. No diarrhea. No constipation. No bloody or tarry stools. No loss of appetite. Genitourinary: No dysuria, increased frequency, urgency. No urinary retention. Musculoskeletal: No myalgias. No muscle weakness, no gait dysfunction, no frequ ent falls. No back pain. No neck pain. Integumentary: No wounds, no lesions. No rash or pruritus. No unusual bruising. No change in hair or nails. Neurologic: No aphasia. No facial droop. No change in mentation. No head injury. No headache. No paralysis. No paresthesia. Psychiatric: No depression. No anxiety. No mood swings. Endocrine: No abnormal blood sugars. No weight change. No excessive sweating or thirst. No cold intolerance. SOCIAL HISTORY Patient is a lifelong nonsmoker, no alcohol use, no illicit drug use. Patient is a retired school secretary. She lives at home with her of 25 years. She does not utilize dme for ambulation, no CPAP, no nebulizer at home. FAMILY HISTORY Mother at age 97 from old age. Father at age 66 from an accident causing a brain hemorrhage. Patient has 2 half-brothers and one in a fire. Patient has a total of 3 half-sisters and one is past with complications from rheumatoid arthritis. Patient has 4 children with no major medical problems. PHYSICAL EXAMINATION Gen: This is is a 80-year-old female. She is resting in bed and appears to be comfortable and in no acute distress. HEENT: Head is atraumatic, normocephalic. Pupils equal, round. Sclerae is anicteric. NECK: Supple. No JVD. No lymphadenopathy. No thyromegaly. LUNGS: Clear to auscultation. No wheezes or rhonchi. No intercostal retractions. HEART: Regular rate and rhythm. No murmur. Bradycardic. ABDOMEN: Soft. Bowel sounds are present. No masses. No tenderness. EXTREMITIES: No pedal edema. No calf tenderness. NEUROLOGICAL: Patient is awake, alert and oriented x3. Cranial nerves 2 through 12 are grossly intact. ASSESSMENT AND PLAN 1. New onset of atrial fibrillation, rate controlled. Patient is on heparin drip, cardiology consult, echocardiogram. Atenolol on hold due to bradycardia. 2. New onset diastolic heart failure. Echocardiogram, Lasix 40 mg IV every 12 hours, monitor I&O and daily weights, monitor electrolytes and renal function. 3. Hypertension. 4. Hyperlipidemia. Continue pravastatin 40 mg daily. 5. Seasonal ALLERGIES. 6. History of hypothyroidism. TSH and free T4. 7. GI prophylaxis. Protonix. 8. DVT prophylaxis. Heparin Patient will be admitted to the hospital for a minimum of 2 night stay. DISCHARGE PLAN home. Impression and plan of care have been directed as dictated by the signing physician. Nora Lowe nurse practitioner acting as scribe for signing physic carolann. Past Medical History Past Medical History: Hyperlipidemia, Hypertension, Thyroid Disorder History of Any Multi-Drug Resistant Organisms: None Reported Past Surgical History: Appendectomy, Hysterectomy, Tonsillectomy Additional Past Surgical History / Comment(s): Bilateral cataract sugery Past Anesthesia/Blood Transfusion Reactions: No Reported Reaction Additional Past Anesthesia/Blood Transfusion Reaction / Comment(s): Rupture appendix = 6 blood transfusions, no reactions/problems at that time when patient was 14 years old. Past Psychological History: No Psychological Hx Reported Smoking Status: Never smoker Past Alcohol Use History: None Reported Past Drug Use History: None Reported - Past Family History Father Additional Family Medical History / Comment(s): Glaucoma, from fall and hit back of head. Mother Family Medical History: No Reported History Medications and Allergies Home Medications Medication Instructions Recorded Confirmed Type Pravastatin Sodium [Pravachol] 40 mg PO HS 09/10/17 06/25/21 History atenoloL [Tenormin] 50 mg PO HS 09/10/17 06/25/21 History Cholecalciferol [Vitamin D3 (25 50 mcg PO MOWEFR 06/25/21 06/25/21 History Mcg = 1000 Iu)] Cranberry 8400mg 1 tab PO BID 06/25/21 06/25/21 History Loratadine 10 mg PO DAILY 06/25/21 06/25/21 History Tart Quintero 425mg 1 tab PO BID 06/25/21 06/25/21 History Thyroid, Pork [[place] Thyroid] 30 mg PO DAILY 06/25/21 06/25/21 History Ubiquinol 50mg 1 cap PO HS 06/25/21 06/25/21 History Vitamin C/Biotin [Hair, Skin and 2 tab PO DAILY 06/25/21 06/25/21 History Nails Chew] Apixaban [Eliquis] 5 mg PO BID 30 Days #60 tab 06/26/21 Rx Allergies Allergy/AdvReac Type Severity Reaction Status Date / Time chocolate flavor Allergy Itching Verified 06/25/21 17:15 vancomycin Allergy Rash/Hives Verified 06/25/21 17:15 wheat AdvReac Bloating Verified 06/25/21 17:15 Physical Exam Vitals: Vital Signs Temp Pulse Pulse Resp BP Pulse Ox 06/26/21 04:00 60 20 159/64 96 06/26/21 02:49 55 L 16 165/79 97 06/26/21 00:00 61 18 154/62 96 06/25/21 22:00 64 18 171/64 95 06/25/21 21:19 60 16 170/85 96 06/25/21 20:00 61 18 169/71 96 06/25/21 18:42 65 06/25/21 18:41 65 18 167/86 94 L 06/25/21 17:17 64 18 161/64 96 06/25/21 17:03 56 L 18 161/64 94 L 06/25/21 14:54 97.9 F 63 18 182/82 97 Intake and Output 06/25/21 06/26/21 06/26/21 22:59 06:59 14:59 Other: Weight 75.75 kg Results CBC & Chem 7: 06/26/21 05:35 06/25/21 17:15 Labs: Abnormal Lab Results - Last 24 Hours (Table) 06/25/21 06/25/21 06/26/21 Range/Units 17:15 23:09 05:37 APTT 54.4 H 48.7 H (22.0-30.0) sec TSH 0.431 L (0.465-4.680) mIU/L Thrombosis Risk Factor Assmnt - Choose All That Apply Any of the Below Risk Factors Present?: Yes Each Factor Represents 1 point: Medical pt on bed rest, Obesity (BMI >25) Other Risk Factors: Yes Each Risk Factor Represents 3 Points: Age 75 years or older Thrombosis Risk Factor Assessment Total Risk Factor Score: 5 Thrombosis Risk Factor Assessment Level: High Risk
[2021-06-26 10:56] VITALS: RESP 18
--- NOTE | 2021-06-26 11:09 | CDI ---
Documentation Clarification Form Date: 06/26/2021 10:56:32 AM From: Lois Rodriguez RN, CCDS Admit Date: 06/25/2021 06:32:00 PM Patient Name: Jazmin Pizarro Visit Number: [id number] Discharge Date: ATTENTION: The Clinical Documentation Specialists (CDI) and [facility] Coding Staff appreciate your assistance in clarifying documentation. Please respond to the clarification below the line at the bottom and electronically sign. The CDI & [facility] Coding staff will review the response and follow-up if needed. Please note: Queries are made part of the Legal Health Record. If you have any questions, please contact the author of this message via ITS. Dr. Antonio Gustafson Your patient has the documented diagnosis of new onset diastolic heart failure. Additional information regarding the acuity] of heart failure is requested. History/Risk Factors: Hypertension, Hyperlipidemia, Hypothyroidism Clinical Indicators: 80-year-old female present to emergency department with complaints of shortness of breath and palpitations, leg swelling. No JVD, lungs clear to auscultation. 06/25 VS/Pulse OX: 182/82 63 18 97.9 97 % RA 06/25 BNP: 1780 06/25 CXR: Small pleural effusion. No obvious heart failure. Cardiomegaly increased. There is possible new small infiltrate in the medial right upper lobe compared to old exam. Treatment: Telemetry Monitoring Lasix 40 MG IV Q 12 HRS Monitor I/O, Daily weights, Monitor electrolytes and renal function In your professional opinion, can you please clarify the acuity of CHF if known? [xx ] Acute Diastolic Heart Failure (preserved EF) [ ] Other, please specify [ ] Unable to determine (Template Last Revised: April 2020) MTDD
[2021-06-26] MEDS ORDERED: POTASSIUM CHLORIDE ER 10 MEQ TAB.ER.PRT PO SCH (11:15)
[2021-06-26] MEDS ORDERED: APIXABAN 5 MG TAB PO SCH (11:15)
--- NOTE | 2021-06-26 12:36 | ECHOF ---
Referral Reason:new onset afib and chf MEASUREMENTS -------- HEIGHT: 160.0 cm WEIGHT: 75.7 kg BP: RVIDd: 3.2 cm (< 3.3) IVSd: 1.4 cm (0.6 - 1.1) LVIDd: 3.1 cm (3.9 - 5.3) LVPWd: 1.2 cm (0.6 - 1.1) IVSs: 1.7 cm LVIDs: 2.2 cm LVPWs: 1.7 cm LAESV Index (A-L): 23.24 ml/m Ao Diam: 3.5 cm (2.0 - 3.7) AV Cusp: 2.0 cm (1.5 - 2.6) LA Diam: 3.6 cm (2.7 - 3.8) MV EXCURSION: 16.312 mm (> 18.000) MV EF SLOPE: 115 mm/s (70 - 150) EPSS: 0.5 cm RAP: 5.00 mmHg RVSP: 18.50 mmHg FINDINGS -------- Atrial fibrillation. This was a technically good study. The left ventricular size is normal. There is mild concentric left ventricular hypertrophy. Overa ll left ventricular systolic function is normal with, an EF between 55 - 60 %. Left ventricular caitlyn limg pressure cannot be estimated due to Atrial fibrillation. The right ventricle is normal in size. The left atrial size is normal. Normal LA size by volume 22+/-6 ml/m2. The right atrial size is normal. The aortic valve is trileaflet and appears structurally normal. The mitral valve is normal. There is trace mitral regurgitation. The tricuspid valve appears structurally normal. Trace tricuspid regurgitation present. Right rody tricular systolic pressure is normal at < 35 mmHg. There is no pulmonic regurgitation present. The aortic root size is normal. Normal inferior vena cava with normal inspiratory collapse consistent with estimated right atrial pre ssure of 5 mmHg. There is no pericardial effusion. CONCLUSIONS -------- 1. The left ventricular size is normal. 2. There is mild concentric left ventricular hypertrophy. 3. Overall left ventricular systolic function is normal with, an EF between 55 - 60 %. 4. There is trace mitral regurgitation. 5. Trace tricuspid regurgitation present. 6. There is no pericardial effusion. VICE PRESIDENT OF ADVERTISING: Manda Antonio [facility]
--- NOTE | 2021-06-26 12:48 | P.CRDCN ---
History of Present Illness History of present illness: HISTORY OF PRESENTING ILLNESS This is a pleasant 80-year-old female past medical history significant for hypertension, hyperlipidemia, hypothyroidism. Patient follows with Dr. Roxana Mendoza flight operations dispatch clerk at [facility]. We have been asked to see in consultation for new onset atrial fibrillation. Patient presents to the emergency department with complaints of worsening shortness of breath, bilateral lower extremity edema, gaining about 1 pound per day for a week. She states she has been having these symptoms for about 1-2 weeks. However, the past 3 days she has been significantly short of breath at with rest and with activity. She also noted her bilateral low show edema or worsen. She initially went her primary is an EKG was performed which revealed new onset atrial fibrillation with slow response. She was recommended to go to the emergency department for further evaluation. She also called her flight operations dispatch clerk in several follow-up appointment on 06/30/2021. She denies any history of CAD, [place], stroke, diabetes, atrial fibrillation. She states she has been told that she has irregular heartbeat but this is in the form of "skipped beats" or "extra beats" Never told that she has atrial fibrillation/flutter before. She denies alcohol or tobacco use DIAGNOSTICS EKG reveals atrial fibrillation, heart rate 59, with slow ventricular response, T-wave inversions in lead III and V2, V3. No prior EKG to compare Echocardiogram revealed EF of 5560 percent, no significant wall motion abnormalities. Telemetry tracings indicate H fibrillation with controlled ventricular rate, heart rate in the 50s to 60s. Chest xray on admission revealed small pleural effusions bilaterally, possible new small infiltrate in the medial right upper lobe. Laboratory reviewed, CBC unremarkable, troponin negative, sodium 139, potassium 4.2, BUN 15, serum crit 0.6, BNP was 1780, TSH 0.43 Current home medications include atenolol 50 mg nightly, pravastatin 40 mg nightly REVIEW OF SYSTEMS At the time of my exam: CONSTITUTIONAL: Denies fever or chills. CARDIOVASCULAR: Denies chest pain, shortness of breath, orthopnea, PND or palpitations. RESPIRATORY: Denies cough. GASTROINTESTINAL: Denies abdominal pain, diarrhea, constipation, nausea or vomiting. MUSCULOSKELETAL: Denies myalgias. NEUROLOGIC: Denies numbness, tingling, headacbe or weakness. ENDOCRINE: Denies fatigue, weight change, polydipsia or polyurina. GENITOURINARY: Denies burning, hematuria or urgency with micturation. HEMATOLOGIC: Denies history of anemia or bleeding. PHYSICAL EXAMINATION Vitals 123/73, heart rate 67, afebrile, oxygen saturation is 96% on room air CONSTITUTIONAL: No apparent distress. HEENT: Head is normocephalic. Pupils are equal, round. Sclerae anicteric. Mucous membranes of the mouth are moist. No JVD. No carotid bruit. CHEST EXAMINATION: Lungs are clear to auscultation. No chest wall tenderness is noted on palpation or with deep breathing. HEART EXAMINATION: Irregular rate and rhythm. S1, S2 heard. No murmurs, gallops or rub. ABDOMEN: Soft, nontender. Positive bowel sounds. EXTREMITIES: 2+ peripheral pulses, no lower extremity edema and no calf tenderness. SKIN: Warm, dry NEUROLOGIC EXAMINATION: Patient is awake, alert and oriented x3. ASSESSMENT New onset paroxysmal atrial fibrillation, with controlled rates -[id number] score 5 History of hypertension Dyslipidemia Hypothyroidism PLAN 2-D echocardiogram obtained and reviewed Continue atenolol 50 mg nightly Stop IV heparin, start Eliquis 5 mg twice a day Case management consultation for coverage, patient is covered for Eliquis $45 a month co-pay Stop IV Lasix, continue by mouth Lasix 40 mg daily Start potassium chloride 10 mEq daily Continue statin From cardiology perspective, patient stable to be discharged home. Follow-up with her flight operations dispatch clerk Dr. Roxana Mendoza. Patient has a follow up appointment on 06/30. Nurse practitioner note has been reviewed by physician. Signing provider agrees with the documented findings, assessment, and plan of care. Past Medical History Past Medical History: Hyperlipidemia, Hypertension, Thyroid Disorder History of Any Multi-Drug Resistant Organisms: None Reported Past Surgical History: Appendectomy, Hysterectomy, Tonsillectomy Additional Past Surgical History / Comment(s): Bilateral cataract sugery Past Anesthesia/Blood Transfusion Reactions: No Reported Reaction Additional Past Anesthesia/Blood Transfusion Reaction / Comment(s): Rupture appendix = 6 blood transfusions, no reactions/problems at that time when patient was 14 years old. Past Psychological History: No Psychological Hx Reported Smoking Status: Never smoker Past Alcohol Use History: None Reported Past Drug Use History: None Reported - Past Family History Father Additional Family Medical History / Comment(s): Glaucoma, from fall and hit back of head. Mother Family Medical History: No Reported History Medications and Allergies Home Medications Medication Instructions Recorded Confirmed Type Pravastatin Sodium [Pravachol] 40 mg PO HS 09/10/17 06/25/21 History atenoloL [Tenormin] 50 mg PO HS 09/10/17 06/25/21 History Cholecalciferol [Vitamin D3 (25 50 mcg PO MOWEFR 06/25/21 06/25/21 History Mcg = 1000 Iu)] Cranberry 8400mg 1 tab PO BID 06/25/21 06/25/21 History Loratadine 10 mg PO DAILY 06/25/21 06/25/21 History Tart Quintero 425mg 1 tab PO BID 06/25/21 06/25/21 History Thyroid, Pork [[place] Thyroid] 30 mg PO DAILY 06/25/21 06/25/21 History Ubiquinol 50mg 1 cap PO HS 06/25/21 06/25/21 History Vitamin C/Biotin [Hair, Skin and 2 tab PO DAILY 06/25/21 06/25/21 History Nails Chew] Apixaban [Eliquis] 5 mg PO BID 30 Days #60 tab 06/26/21 Rx Allergies Allergy/AdvReac Type Severity Reaction Status Date / Time chocolate flavor Allergy Itching Verified 06/25/21 17:15 vancomycin Allergy Rash/Hives Verified 06/25/21 17:15 wheat AdvReac Bloating Verified 06/25/21 17:15 Physical Exam Vitals: Vital Signs Temp Pulse Pulse Resp BP Pulse Ox 06/26/21 04:00 60 20 159/64 96 06/26/21 02:49 55 L 16 165/79 97 06/26/21 00:00 61 18 154/62 96 06/25/21 22:00 64 18 171/64 95 06/25/21 21:19 60 16 170/85 96 06/25/21 20:00 61 18 169/71 96 06/25/21 18:42 65 06/25/21 18:41 65 18 167/86 94 L 06/25/21 17:17 64 18 161/64 96 06/25/21 17:03 56 L 18 161/64 94 L 06/25/21 14:54 97.9 F 63 18 182/82 97 Intake and Output 06/25/21 06/26/21 06/26/21 22:59 06:59 14:59 Other: # Voids 1 Weight 75.75 kg Results 06/26/21 05:35 06/25/21 17:15 Cardiac Enzymes 06/25/21 06/25/21 Range/Units 17:15 17:15 AST 20 (14-36) U/L Troponin I <0.012 (0.000-0.034) ng/mL Coagulation 06/25/21 06/25/21 06/26/21 Range/Units 16:14 23:09 05:37 PT 10.7 11.5 (9.0-12.0) sec APTT 24.1 54.4 H 48.7 H (22.0-30.0) sec CBC 06/25/21 06/26/21 Range/Units 16:14 05:35 WBC 7.5 7.3 (3.8-10.6) k/uL RBC 4.80 4.46 (3.80-5.40) m/uL Hgb 13.5 12.5 (11.4-16.0) gm/dL Hct 41.9 39.6 (34.0-46.0) % Plt Count 256 201 (150-450) k/uL Comprehensive Metabolic Panel 06/25/21 Range/Units 17:15 Sodium 139 (137-145) mmol/L Potassium 4.2 (3.5-5.1) mmol/L Chloride 104 (98-107) mmol/L Carbon Dioxide 28 (22-30) mmol/L BUN 15 (7-17) mg/dL Creatinine 0.65 (0.52-1.04) mg/dL Glucose 85 (74-99) mg/dL Calcium 9.4 (8.4-10.2) mg/dL AST 20 (14-36) U/L ALT 17 (4-34) U/L Alkaline Phosphatase 81 (38-126) U/L Total Protein 6.8 (6.3-8.2) g/dL Albumin 4.0 (3.5-5.0) g/dL Current Medications Generic Name Dose Route Start Last Admin Trade Name Freq PRN Reason Stop Dose Admin Cholecalciferol 50 mcg 06/27/21 09:00 Cholecalciferol 25 Mcg (1000 Iu) Tablet PO MOWEFR ALBERTO Furosemide 40 mg 06/26/21 06:00 06/26/21 06:25 Furosemide 10 Mg/Ml 4 Ml Vial IV 40 mg Q12H ALBERTO Administration Heparin Sodium (Porcine) 0 unit 06/25/21 17:12 Heparin Sodium 1,000 Un/Ml (10ml Vl) IV PER PROTOCOL PRN Low PTT Protocol Heparin Sodium/Sodium Chloride 250 mls @ 9.09 mls/hr 06/25/21 17:15 06/25/21 18:35 25,000 unit/ Sodium Chloride IV 12 units/kg/hr .Q24H ALBERTO 9.09 mls/hr Administration Protocol 12 UNITS/KG/HR Loratadine 10 mg 06/26/21 09:00 Loratadine 10 Mg Tab PO DAILY ALBERTO Pravastatin Sodium 40 mg 06/26/21 21:00 Pravastatin Sodium 40 Mg Tab PO HS ALBERTO Thyroid 30 mg 06/26/21 09:00 Thyroid, Pork 30 Mg Tab PO DAILY ALBERTO Intake and Output 06/25/21 06/26/21 06/26/21 22:59 06:59 14:59 Other: # Voids 1 Weight 75.75 kg Patient Weight 06/27/21 06:59 Weight 75.75 kg 06/26/21 05:35 06/25/21 17:15
[2021-06-26 13:04] LABS: T4, Free (Free Thyroxine) 1.03 ng/dL (0.78-2.19)
--- NOTE | 2021-06-26 13:13 | P.DS ---
Providers Date of admission: 06/25/21 18:32 Expected date of discharge: 06/26/21 Attending physician: Antonio Gustafson Consults: 06/25/21 18:32 Consult Physician Routine Consulting Provider: [facility] Consult Reason/Comments: new afib Do you want consulting provider notified?: Yes Primary care physician: Matthew Mcallister [facility] Course: HISTORY OF PRESENT ILLNESS This is a 80-year-old female patient of Steven López NP with past medical history of hypertension, hyperlipidemia, hypothyroidism. Patient follows with Dr. Roxana Mendoza senior managing director at [facility] but she has not seen him for the past 3 years as she was released to follow with her PCP only. She does have an appointment with him next week though. She was at her appointment with PCP and developed shortness of breath was unable to take more than 2 steps, palpitations, leg swelling and there is concern for new onset of atrial fibrillation patient was sent to the hospital. She denies any history of atrial fibrillation but has been told she has irregular heartbeat. She denies history of heart failure. She has had a stress test and echocardiogram done in the [facility], no heart catheterization. She states she sometimes has pain in her bilateral arms that was related to her neck and follows with a chiropractor. She denies any chest pain. Patient came into [facility] emergency center for evaluation and found to be afebrile, heart rate in the 50s and 60s, blood pressure initially 182/82, pulse ox 97% on room air. CBC was unremarkable. Electrolytes and renal function normal. ProBNP 1780. Liver function tests normal. Troponin negative. TSH 0.431. Free T4 1.03. Chest x-ray reveals small pleural effusions which are new. No obvious heart failure. Cardiomegaly increased. Possible small infiltrate in the medial right upper lobe. Patient was started on heparin drip, IV Lasix 40 mg every 12 hours, admitted to the cardiac stent done unit and cardiology consult requested. ECHOCARDIOGRAM REVEALS ef OF 55-60% WITH MILD CONCENTRIC LEFT HYPERTROPHY, TRACE MITRAL REGURGITATION, TRACE TRICUSPID REGURGITATION. PATIENT HAS BEEN SEEN BY CARDIOLOGY AND STARTED ON ELIQUIS, CONTINUED ON ATENOLOL AND CLEARED FOR DISCHARGE HOME. PATIENT WILL BE DISCHARGED HOME TODAY IN STABLE CONDITION. DISCHARGE DIAGNOSES 1. New onset of atrial fibrillation, rate controlled. 2. New onset acute diastolic heart failure. 3. Hypertension. 4. Hyperlipidemia. 5. Seasonal ALLERGIES. 6. History of hypothyroidism. DISCHARGE PLAN home. Greater than 35 minutes was utilized and coordinating patient's discharge. Impression and plan of care have been directed as dictated by the signing physician. Nora Lowe nurse practitioner acting as scribe for signing physician. Patient Condition at Discharge: Serious Plan - Discharge Summary New Discharge Prescriptions: New Potassium Chloride ER [K-Dur 10] 10 meq PO DAILY #30 tablet Furosemide [Lasix] 40 mg PO DAILY #30 tab Apixaban [Eliquis] 5 mg PO BID 30 Days #60 tab Continue Pravastatin Sodium [Pravachol] 40 mg PO HS atenoloL [Tenormin] 50 mg PO HS Ubiquinol 50mg 1 cap PO HS Loratadine 10 mg PO DAILY Cholecalciferol [Vitamin D3 (25 Mcg = 1000 Iu)] 50 mcg PO MOWEFR Vitamin C/Biotin [Hair, Skin and Nails Chew] 2 tab PO DAILY Tart Quintero 425mg 1 tab PO BID Cranberry 8400mg 1 tab PO BID Thyroid, Pork [[place] Thyroid] 30 mg PO DAILY Discharge Medication List Pravastatin Sodium [Pravachol] 40 mg PO HS 09/10/17 [History] atenoloL [Tenormin] 50 mg PO HS 09/10/17 [History] Cholecalciferol [Vitamin D3 (25 Mcg = 1000 Iu)] 50 mcg PO MOWEFR 06/25/21 [History] Cranberry 8400mg 1 tab PO BID 06/25/21 [History] Loratadine 10 mg PO DAILY 06/25/21 [History] Tart Quintero 425mg 1 tab PO BID 06/25/21 [History] Thyroid, Pork [[place] Thyroid] 30 mg PO DAILY 06/25/21 [History] Ubiquinol 50mg 1 cap PO HS 06/25/21 [History] Vitamin C/Biotin [Hair, Skin and Nails Chew] 2 tab PO DAILY 06/25/21 [History] Apixaban [Eliquis] 5 mg PO BID 30 Days #60 tab 06/26/21 [Rx] Furosemide [Lasix] 40 mg PO DAILY #30 tab 06/26/21 [Rx] Potassium Chloride ER [K-Dur 10] 10 meq PO DAILY #30 tablet 06/26/21 [Rx] Follow up Appointment(s)/Referral(s): Kamila López NPC [Nurse Practitioner] - 1 Week Roxana Mendoza MD [REFERRING] - 06/30/21 Patient Instructions/Handouts: Apixaban (By mouth), A-fib (Atrial Fibrillation) (ED) Discharge Disposition: HOME SELF-CARE
[2021-06-26 14:14] VITALS: BP 117/70; PULSE 71
[2021-06-26 15:18] VITALS: BMI 29.5
[2021-06-26] MEDS ORDERED: atenoloL 50 MG TAB PO SCH (21:00)
[2021-06-26] MEDS ORDERED: UBIQUINOL 50 MG PO SCH (21:00)
[2021-06-26] MEDS ORDERED: PRAVASTATIN SODIUM 40 MG TAB PO SCH (21:00)
[2021-06-27] MEDS ORDERED: PANTOPRAZOLE 40 MG TABLET PO SCH (07:30)
[2021-06-27] MEDS ORDERED: CHOLECALCIFEROL 25 MCG (1000 IU) TABLET PO SCH (09:00)
[2021-06-27] MEDS ORDERED: FUROSEMIDE 40 MG TAB PO SCH (09:00)
== END 2021-06-26 17:25 | disposition home or self-care (01) ==
LOC: EC 14:39 → INTOOBSV 18:32 → 3SCARD 18:32 → UNDODISIN 06-26 17:25
PROVIDERS: ADMIT Internal Medicine Geriatric Medicine; ATTEND Internal Medicine Geriatric Medicine
DX: I11.0 Hypertensive heart disease with heart failure (principal); I50.31 Acute diastolic (congestive) heart failure; E03.9 Hypothyroidism, unspecified; I48.0 Paroxysmal atrial fibrillation; J30.2 Other seasonal allergic rhinitis; E78.5 Hyperlipidemia, unspecified; M79.601 Pain in right arm; M79.602 Pain in left arm; E66.9 Obesity, unspecified; Z68.29 Body mass index [BMI] 29.0-29.9, adult; Z71.3 Dietary counseling and surveillance; Z79.3 Long term (current) use of hormonal contraceptives; Z79.01 Long term (current) use of anticoagulants; Z79.899 Other long term (current) drug therapy; Z88.1 Allergy status to other antibiotic agents; Z91.018 Allergy to other foods; Z91.02 Food additives allergy status; Z98.42 Cataract extraction status, left eye; Z98.41 Cataract extraction status, right eye; Z96.1 Presence of intraocular lens; Z87.19 Personal history of other diseases of the digestive system; Z90.710 Acquired absence of both cervix and uterus; Z90.49 Acquired absence of other specified parts of digestive tract; Z87.42 Personal history of other diseases of the female genital tract; Z98.890 Other specified postprocedural states; Z90.89 Acquired absence of other organs; Z82.61 Family history of arthritis; Z82.3 Family history of stroke; Z83.511 Family history of glaucoma
CPT/HCPCS: 99285; 96376 ×2; 96365; 96366; 96375; 36415; 93005; 93306; 84439; 84481; 83880; 80053; 83735; 84443; 84484; 85025 ×2; 85610 ×2; 85730 ×2; 71046; G0378 ×2; J1940 ×2; J1644 ×2

== ENCOUNTER → 2022-02-17 | Outpatient (CLI) | payer MEDICARE ==
--- NOTE | 2022-02-18 09:17 | MM ---
Reason for Exam: Screening (asymptomatic). Last mammogram was performed 1 year(s) and 1 month(s) ago. Patient History: Menarche at age 19. First Full-Term at age 20. Left ovary removed at age 51. Right ovary removed at age 51. Hysterectomy at age 51. Postmenopausal. Other cancer. Daughter had breast cancer, age 54. Risk Values: Naima 5 year model risk: 2.9%. NCI Lifetime model risk: 4.8%. Prior Study Comparison: 10/11/2017 Bilateral Diagnostic Mammogram, [facility]. 08/17/2018 Bilateral Diagnostic Mammogram, [facility]. 01/15/2021 Bilateral Screening Mammogram, [facility]. Tissue Density: The breast tissue is heterogeneously dense. This may lower the sensitivity of mammography. Findings: Analyzed By CAD. There is no suspicious group of microcalcifications or new suspicious mass in either breast. Overall Assessment: Negative, BI-RAD 1 Management: Screening Mammogram of both breasts in 1 year. A clinical breast exam by your physician is recommended on an annual basis and results should be correlated with mammographic findings. [facility] will attempt to contact patient to return for supplemental views and ultrasound if indicated. Electronically signed and approved by: Garcia Castellanos DO
== END | disposition home or self-care (01) ==
LOC: RADMAMWWP 10:50
PROVIDERS: ATTEND Family Medicine
DX: Z12.31 Encounter for screening mammogram for malignant neoplasm of breast (principal); Z80.3 Family history of malignant neoplasm of breast; Z78.0 Asymptomatic menopausal state
CPT/HCPCS: 77063; 77067

== ENCOUNTER → 2023-02-22 | Outpatient (CLI) | payer MEDICARE ==
--- NOTE | 2023-02-23 21:15 | MM ---
Reason for Exam: Screening (asymptomatic). Last screening mammogram was performed 12 month(s) ago. Patient History: Menarche at age 19. First Full-Term at age 20. Left ovary removed at age 51. Right ovary removed at age 51. Hysterectomy at age 51. Postmenopausal. Other cancer. Daughter had breast cancer, age 54. Risk Values: Naima 5 year model risk: 2.8%. NCI Lifetime model risk: 4.3%. Prior Study Comparison: 08/17/2018 Bilateral Diagnostic Mammogram, [facility]. 01/15/2021 Bilateral Screening Mammogram, [facility]. 02/17/2022 Bilateral MG 3D screening mammo w/cad, [facility]. Tissue Density: The breast tissue is heterogeneously dense. This may lower the sensitivity of mammography. Findings: Analyzed By CAD. There are benign bilateral vascular and punctate calcifications. There is no suspicious group of microcalcifications or new suspicious mass in either breast. Overall Assessment: Benign, BI-RAD 2 Management: Screening Mammogram of both breasts in 1 year. . Patient should continue monthly self-breast exams. A clinical breast exam by your physician is recommended on an annual basis. This exam should not preclude additional follow-up of suspicious palpable abnormalities. Note on Naima scores and lifetime risk: 1. A Naima score greater than 3% is considered moderate risk. If this is the case, consider specialist referral to assess eligibility for a risk reducing agent. 2. If overall lifetime risk for the development of breast cancer is 20% or higher, the patient may qualify for future screening with alternating mammogram and breast MRI. Electronically signed and approved by: Braulio Wilde M.D. Radiologist
== END | disposition home or self-care (01) ==
LOC: RADMAMWWP 14:37
PROVIDERS: ATTEND Family Medicine
DX: Z12.31 Encounter for screening mammogram for malignant neoplasm of breast (principal); Z78.0 Asymptomatic menopausal state; Z80.3 Family history of malignant neoplasm of breast
CPT/HCPCS: 77063; 77067

== ENCOUNTER → 2023-04-14 | Outpatient (CLI) | payer MEDICARE ==
[2023-04-14 14:41] LABS: African American GFR (CKD) >90 (>60 ml/min/1.73 sqM); Blood Urea Nitrogen 22 mg/dL (7-17); Non-African American GFR(CKD) 78 (>60 ml/min/1.73 sqM)
--- NOTE | 2023-04-16 14:32 | CT ---
EXAMINATION TYPE: CT urogram wo/w con DATE OF EXAM: 04/14/2023 COMPARISON: 02/10/2018 HISTORY: GROSS HEMATURIA CT DLP: 2345 mGycm Automated exposure control for dose reduction was used. Contrast: 90 mL Isovue-300 50 mL saline Technique: Axial images 3 mm thick sections. Reconstructed images in the coronal and sagittal plane. Three-D reconstructed images performed on a separate computer by technologist are reviewed. FINDINGS: Limited CT sections are obtained through the lung bases. Heart size is prominent. Lung garcia appear clear CT ABDOMEN: Liver spleen pancreas adrenal glands and gallbladder appear unremarkable. There are punctate renal stones without obstruction. The upper pole left kidney. There is a cyst on t he lateral right kidney measuring 1.2 cm. Nonobstructing posterior right renal stone is noted. There is an inferior pole renal stone without obstruction measuring 0.2 cm. Vascular calcifications within the aorta. Inferior vena cava is normal. CT PELVIS: Loops of bowel within the pelvis and abdomen appear unremarkable without oral contrast. Ur inary bladder appears unremarkable. Uterus and ovaries are not identified. Osseous structures visuali zed without lytic or sclerotic lesions. Three-D reconstructed images are reviewed. Renal calyces infundibula and renal pelves appear normal. Sequential images have visualization of the ureters. There are portions which are not visualized whic h can't be evaluated. Urinary bladder as visualized appears normal. Small calcifications appear to be phleboliths within the pelvis are partially visualized on the reconstructed images. Suspicious filli ng defects are not identified. IMPRESSION: 1. NO SUSPICIOUS ABNORMALITY TO ACCOUNT FOR HEMATURIA. CONSIDER ADDITIONAL WORKUP SUCH CYSTOSCOPY. 2. NONOBSTRUCTING PUNCTATE BILATERAL RENAL STONES.
== END | disposition home or self-care (01) ==
LOC: RADCTMAIN 13:49
PROVIDERS: ATTEND Urology
DX: N20.0 Calculus of kidney (principal); R31.0 Gross hematuria
CPT/HCPCS: 82565; 84520; 74178; 36415; 74400; Q9967

== ENCOUNTER → 2023-06-29 | Outpatient (CLI) | payer MEDICARE ==
[2023-06-29 16:04] LABS: Basophils # (A) 0.05 X 10*3/uL (0.00-0.10); Basophils % (A) 0.7 %; Eosinophils # (A) 0.13 X 10*3/uL (0.04-0.35); Eosinophils % (A) 1.7 %; HCT 39.8 % (37.2-46.3); HGB 12.4 g/dL (12.0-15.0); Lymphocytes % (A) 26.9 %; MCH 27.6 pg (27.0-32.0); MCHC 31.2 g/dL (32.0-37.0); MCV 88.6 FL (80.0-97.0); Monocytes # (A) 0.58 X 10*3/uL (0.20-1.00); Monocytes % (A) 7.8 %; NRBC Per 100 WBC 0 X 10*3/uL (0.00-0.01); Neutrophils # (A) 4.64 X 10*3/uL (1.80-7.70); Neutrophils % (A) 62.5 %; Platelet Count 271 X 10*3/uL (140-440); RBC 4.49 X 10*6/uL (4.10-5.20); RDW 14.8 % (11.5-14.5); WBC 7.43 X 10*3/uL (4.50-10.00)
[2023-06-29 16:11] LABS: BUN/Creat Ratio 25.71 Ratio (12.00-20.00); Calcium 9.4 mg/dL (8.7-10.3); Carbon Dioxide 30.2 mmol/L (21.6-31.8); Chloride 102 mmol/L (96-109); Glucose 94 mg/dL (70-110); Potassium 4.7 mmol/L (3.5-5.5); Sodium 140 mmol/L (135-145)
== END | disposition home or self-care (01) ==
LOC: LABPAT 13:23
PROVIDERS: ATTEND Urology
DX: Z01.812 Encounter for preprocedural laboratory examination (principal); N20.0 Calculus of kidney; R31.0 Gross hematuria
CPT/HCPCS: 80048; 85025

== ENCOUNTER 2023-07-06 06:03 | Day surgery (SDC) | payer MEDICARE ==
[2023-07-01 15:56] VITALS: BMI 26.0
--- NOTE | 2023-07-05 21:19 | P.HPIHPCON ---
History of Present Illness H&P Date: 07/05/23 Chief Complaint: Gross hematuria, bilateral renal stones This is an 82-year-old female with history of gross hematuria. Underwent a cystoscopy and a CT urogram that showed no significant finding, only finding was multiple bilateral renal stones. She has been having persistent hematuria Despite negative workup. Discussed given the persistent gross hematuria I do recommend proceeding with a cystoscopy in the OR and bilateral ureteroscopy to evaluate for any small papillary lesion that could have been missed on CT urogram. Discussed with her the stones are unlikely to be her source of gross hematuria but we can address the stones in the same settings. Risk and benefit of surgery were discussed in detail aware the risk which includes but not limited to bleeding, infection, injury to the ureter. Risk of anesthesia was also discussed. She understood all the risk and agreed to proceed Consent for Procedure: I have explained the operation/procedure to the patient, including the risks, benefits, side effects, alternative therapies (including not receiving the proposed treatment or service), the likelihood of the patient achieving his/her goals, and potential recuperation problems for the procedure/sedation/analgesia, as well as any blood products, if indicated. I also explained to the patient the risks, benefits and side effects of the alternatives, as well as the risks related to not receiving the proposed procedure, care, treatment, or services. Past Medical History Past Medical History: Atrial Fibrillation, Hyperlipidemia, Thyroid Disorder Additional Past Medical History / Comment(s): KIDNEY STONES. SLOW HEART RATE History of Any Multi-Drug Resistant Organisms: None Reported Past Surgical History: Appendectomy, Hysterectomy, Tonsillectomy Additional Past Surgical History / Comment(s): Bilateral cataract sugery. COLONOSCOPY Past Anesthesia/Blood Transfusion Reactions: No Reported Reaction Additional Past Anesthesia/Blood Transfusion Reaction / Comment(s): Rupture appendix = 6 blood transfusions, no reactions/problems at that time when patient was 14 years old. Smoking Status: Never smoker - Past Family History Father Additional Family Medical History / Comment(s): Glaucoma, from fall and hit back of head. Mother Family Medical History: No Reported History Daughter(s) Family Medical History: Cancer Additional Family Medical History / Comment(s): BREAST Medications and Allergies Home Medications Medication Instructions Recorded Confirmed Type Pravastatin Sodium [Pravachol] 40 mg PO HS 09/10/17 07/01/23 History Cholecalciferol [Vitamin D3 (25 50 mcg PO MOTH 06/25/21 07/01/23 History Mcg = 1000 Iu)] Cranberry 8400mg 1 tab PO BID 06/25/21 07/01/23 History Loratadine 10 mg PO DAILY 06/25/21 07/01/23 History Tart Quintero 425mg 1 tab PO DAILY 06/25/21 07/01/23 History Thyroid, Pork [[place] Thyroid] 30 mg PO DAILY 06/25/21 07/01/23 History Ubiquinol 50mg 1 cap PO HS 06/25/21 07/01/23 History Apixaban [Eliquis] 5 mg PO BID 30 Days #60 tab 06/26/21 07/01/23 Rx Furosemide [Lasix] 40 mg PO DAILY@1630 07/01/23 07/01/23 History Potassium Chloride ER [K-Dur 10] 10 meq PO DAILY@1630 07/01/23 07/01/23 History Viviscal 475 mg PO BID 07/01/23 History Wheat Dextrin [Benefiber] 1 packet PO DAILY 07/01/23 07/01/23 History atenoloL [Tenormin] 12.5 mg PO HS 07/01/23 07/01/23 History Allergies Allergy/AdvReac Type Severity Reaction Status Date / Time chocolate flavor Allergy Itching Verified 07/01/23 15:08 vancomycin Allergy Rash/Hives Verified 07/01/23 15:08 wheat AdvReac Bloating Verified 07/01/23 15:08 Surgical - Exam - General no distress, no pain - Eyes normal ocular movement, no pale - Respiratory normal expansion, normal respiratory effort Assessment and Plan Assessment: OR for cystoscopy, bilateral ureteroscopy, holmium laser lithotripsy, stone bask eting and stent insertions
[~2023-07-06 06:03] MED LIST changes: +LIDOCAINE 1% (10MG/ML) FOR IV START INTRADERMA PRN; +ONDANSETRON 4 MG/2 ML VIAL IVP ONE; -REGADENOSON 0.4 MG/5 ML SYRINGE IV ONE
--- NOTE | 2023-07-06 06:25 | XR ---
EXAMINATION TYPE: XR KUB DATE OF EXAM: 07/06/2023 6:20 AM CLINICAL HISTORY: Renal stone and gross hematuria. Bilateral kidney stones. TECHNIQUE: Two supine KUB images of the abdomen are obtained. COMPARISON: Most recent CT April 14, 2023. FINDINGS: Small bilateral renal calculi on CT less well seen on plain films. Scattered bilateral pelv ic phleboliths redemonstrated. Overall nonobstructive bowel gas pattern. Lung bases are clear. Slight scoliotic curvature is redemon strated. IMPRESSION: As above.
[2023-07-06] MEDS ORDERED: MIDAZOLAM 2 MG/2 ML VIAL IV PRN (07:00)
[2023-07-06] MEDS ORDERED: HYDROmorphone 0.5 MG/0.5 ML SYRINGE IVP PRN (07:00)
[2023-07-06] MEDS: LACTATED RINGERS 1,000 ML IV SCH (07:02)
[2023-07-06] MEDS: DEXAMETHASONE SOD PHOSPHATE 4 MG/ML 1 ML VIAL IV ONE (07:03)
[2023-07-06 07:09] LABS: Partial Thromboplastin Time 24.2 sec (22.0-30.0); Prothrombin Time 10.6 sec (10.0-12.5)
[2023-07-06 07:25] VITALS: RESP 16
[2023-07-06] MEDS ORDERED: LIDOCAINE 1% INJ 10MG/ML (20 ML MDV) ONE (07:30)
[2023-07-06] MEDS ORDERED: ePHEDrine 50 MG/ML 1 ML VIAL ONE (07:30)
[2023-07-06] MEDS ORDERED: PROPOFOL 10 MG/ML 20 ML VIAL IV ONE (07:30)
[2023-07-06] MEDS ORDERED: fentaNYL (PF) 50 MCG/ML 2 ML AMP ONE (07:30)
[2023-07-06] MEDS ORDERED: SUCCINYLCHOLINE CHLORIDE 200 MG/10 ML VIAL IV ONE (07:30)
[2023-07-06] MEDS: IOPAMIDOL-370 50ML BTL MISCELLANE ONE (08:21)
[2023-07-06 08:56] VITALS: TEMP 97.6
--- NOTE | 2023-07-06 09:00 | P.OP ---
Date of Procedure: 07/06/23 Preoperative Diagnosis: Gross hematuria, bilateral renal stones Postoperative Diagnosis: Same Procedure(s) Performed: Cystoscopy, bilateral ureteroscopy, retrograde pyelogram, and stent insertion Implants: 6 Haitian by 24 cm stent in the bilateral ureter Anesthesia: GURMEET Surgeon: Miller Mims Estimated Blood Loss (ml): 5 Indications for Procedure: This is an 82-year-old female with history of gross hematuria. Underwent a cystoscopy and a CT urogram that showed no significant finding, only finding was multiple bilateral renal stones. She has been having persistent hematuria Despite negative workup. Discussed given the persistent gross hematuria I do recommend proceeding with a cystoscopy in the OR and bilateral ureteroscopy to evaluate for any small papillary lesion that could have been missed on CT urogram. Discussed with her the stones are unlikely to be her source of gross hematuria but we can address the stones in the same settings. Risk and benefit of surgery were discussed in detail aware the risk which includes but not limited to bleeding, infection, injury to the ureter. Risk of anesthesia was also discussed. She understood all the risk and agreed to proceed Operative Findings: Bilateral narrowing at the UPJ, unable to advance the scope into the kidney, no evidence of any hydronephrosis or filling defects in the collecting system, complete ureteroscopy was performed bilaterally which showed no tumors and no abnormality within the bladder. Description of Procedure: Patient brought to the operating room, general anesthesia was induced. She was prepped and draped in sterile fashion and placed in dorsolithotomy position. Cystoscopy fitted with a 21 Haitian sheath was inserted per urethra, cystoscopy was performed which showed no abnormality within the bladder. Attention was then carried to the left ureteral orifice which was intubated with a sensor wire. Next under fluoroscopy 1113 Haitian access sheath was passed over the wire into the proximal ureter. This time the flexible ureteroscope was inserted through the access sheath, at this point a narrowing was encountered in the UPJ, I attempted to advance the scope past the narrowing but resistance was met. 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 Given the narrowing at the UPJ and the fairly small stones decision was made not to proceed with dilation and stone removal. At this time pullback ureteroscopy was performed showed no stones in the ureter or any ureteral tumors, as ureteroscope was withdrawn a sensor wire was advanced through. Next a ureteral stent was passed over the wire, the proximal curl was visualized on fluoroscopy and the distal curl was visualized using the cystoscope. At this time the cystoscope was reinserted per urethra, and the right ureteral orifice was intubated with a sensor wire. Next under fluoroscopy 1113 Haitian access sheath was passed over the wire into the proximal ureter. Next a flexible ureteroscope was inserted through the access sheath, at this point a similar finding was encountered again, physiological narrowing at the UPJ, I was unable to advance the scope past the narrowing and into the bladder, retrograde pyelogram was performed on that side which showed no filling defect or hydronephrosis within the kidney. At this time pullback ureteroscopy was performed which showed no injury to the ureter or any ureteral stones, as ureteroscope was withdrawn and a sensor wire was advanced through. Next ureteral stent was passed over the wire, the proximal curl was visualized on fluoroscopy and the distal curl was visualized in the cystoscope. The bladder was emptied at the end of the case. Patient was awakened from anesthesia and taken to recovery in stable condition. Given the bilateral narrowing at the UPJ and the fairly small stones decision was made not to proceed with stone removal, she will f/u in 1-2 weeks for stent removals
--- NOTE | 2023-07-06 09:06 | FL ---
EXAMINATION TYPE: FL urography retrograde DATE OF EXAM: 07/06/2023 COMPARISON: NONE HISTORY: CYSTOSCOPY TECHNIQUE: Fluoroscopy. FINDINGS: FL TIME 128 SECS DAP [id number] IMPRESSION: As Above.
[2023-07-06 09:43] VITALS: BP 157/80; PULSE 56
== END 2023-07-06 10:04 | disposition home or self-care (01) ==
LOC: OR 06:03
PROVIDERS: ATTEND Urology
DX: N20.0 Calculus of kidney (principal); E78.5 Hyperlipidemia, unspecified; I48.91 Unspecified atrial fibrillation; Z79.01 Long term (current) use of anticoagulants; Z79.890 Hormone replacement therapy; Z90.49 Acquired absence of other specified parts of digestive tract; Z90.710 Acquired absence of both cervix and uterus
CPT/HCPCS: 85610; 85730; 74420; 74018; 52332; C2625; C1769; J0330; J1100; J0690; J2001; J3010; J2704; Q9967

== ENCOUNTER → 2024-03-07 | Outpatient (CLI) | payer MEDICARE ==
--- NOTE | 2024-03-07 10:38 | BD ---
EXAMINATION TYPE: Axial Bone Density DATE OF EXAM: 03/07/2024 CLINICAL HISTORY: 83 years old Female. ICD-10 CODE: M81.0 AGE-RELATED OSTEOPOROSIS , Additional His tory: Height: 61 Weight: 155 FRAX RISK QUESTIONS: History of Fracture in Adulthood: yes Secondary Osteoporosis: RISK FACTORS HISTORY OF: History of Wrist Fracture: right wrist When: about 20 years ago MEDICATIONS: Thyroid Medications: Which medication: [facility] How Lon-15 years EXAM MEASUREMENTS: Bone mineral densitometry was performed using the [employer]. Bone mineral density as measured about the Lumbar spine is: ----- L1-L4(G/cm2): 0.797 T Score Values are as follows: ----- L1: -2.7 ----- L2: -3.4 ----- L3: -3.2 ----- L4: -3.5 ----- L1-L4: -3.2 Z Score Values are as follows: ----- L1: -1.0 ----- L2: -1.7 ----- L3: -1.5 ----- L4: -1.8 ----- L1-L4: -1.5 Bone mineral density has: Decreased -15.8% since study of: 12-30-15 Bone mineral density about the R hip (g/cm2): 0.763 Bone mineral density about the L hip (g/cm2): 0.736 T Score values are as follows: -----R Neck: -2.1 -----L Neck: -2.6 -----R Total: -1.9 -----L Total: -2.2 Z Score values are as follows: -----R Neck: -0.1 -----L Neck: -0.6 -----R Total: 0.0 -----L Total: -0.2 Bone mineral density has: Decreased -5.4% since study of: 12-30-15 FRAX%s: The graph provided illustrates a 28.3% chance for a major osteoporotic fx and a 9.8% chance f or the hips probability for fx in 10 years time. IMPRESSION: Osteoporosis (T Score less than -2.5). There is increased fracture risk and therapy is usually indicated based on age. Re-Screen 1-2 years. NOTE: T-SCORE=SD OF THE YOUNG ADULT MEAN. [facility], , 03/07/2024 10:35 AM
== END | disposition home or self-care (01) ==
LOC: RADBDWWP 07:46
PROVIDERS: ATTEND Family Medicine
DX: Z12.31 Encounter for screening mammogram for malignant neoplasm of breast (principal); M81.0 Age-related osteoporosis without current pathological fracture
CPT/HCPCS: 77063; 77067; 77080

== ENCOUNTER → 2024-08-24 | Day surgery (SDC) | payer MEDICARE ==
--- NOTE | 2024-08-29 11:23 | MM ---
Reason for Exam: Post Procedure Mammogram. Last screening mammogram was performed 6 month(s) ago. Patient History: Menarche at age 19. First Full-Term at age 20. Left ovary removed at age 51. Right ovary removed at age 51. Hysterectomy at age 51. Postmenopausal. Other cancer. Daughter had breast cancer, age 54. Risk Values: Naima 5 year model risk: 2.7%. NCI Lifetime model risk: 3.9%. Prior Study Comparison: 02/22/2023 Bilateral MG 3D screening mammo w/cad, [facility]. 03/07/2024 Bilateral MG 3D screening mammo w/cad, [facility]. 08/17/2024 Right MG 3D diag mammo w/cad RT, [facility]. Tissue Density: Right: The breasts are heterogeneously dense, which may obscure small masses. Pathology Description: Location: retroareolar. Needle Type: Bard 14g x 10cm Cores: 3 Skin Nicks: 1 Gauge: 14 The procedure of ultrasound guided core biopsy was explained to the patient. Benefits, alternatives, and risks were discussed. An informed consent was then obtained. A time out was performed at 12:15. The patient was placed in supine positioning for imaging and for the procedure. The overlying skin was prepped and draped in usual sterile fashion. 5 ml 1% lidocaine buffered with bicarbonate was used as anesthetic into the skin and subcutaneous tissue up to area of concern in the right retroareolar region. A kandice was made with surgical scalpel. Under ultrasound guidance, a 12-gauge vacuum assisted biopsy gun device was used to obtain 3 core samples. Following this, a butterfly biopsy clip was left in the lesion. The patient tolerated the procedure well without any immediate complication. The patient was discharged home in stable condition. Postprocedure mammogram: The patient was transferred to mammography for physician ordered post procedure mammogram for clip placement verification. Post procedure mammogram demonstrates appropriate placement of clip. Impression: Successful, uncomplicated ultrasound guided core biopsy of area of concern in the right breast. [facility], , 08/24/2024 1:06 PM. Pathology Results: Result: Benign, Fibrocystic change. Pathology and radiology were reviewed. Findings are concordant. RIGHT BREAST, ULTRASOUND GUIDED CORE BIOPSY: Focal fibrocystic change with fibroadenomatoid hyperplasia and few benign blood vessels with hemorrhage. Current specimen negative for diagnostic malignancy, correlation with imaging studies suggested. Overall Assessment: Benign Assessment: MG diagnostic mammo RT wo CAD - Right: Benign, BI-RAD 2. Management: Diagnostic Breast Ultrasound of the right breast in 6 months. Electronically signed and approved by: Antonio Tran M.D. Radiologis
== END ==
LOC: RADUSWWP 11:56
PROVIDERS: ATTEND Family Medicine
DX: R92.8 Other abnormal and inconclusive findings on diagnostic imaging of breast (principal); Z80.3 Family history of malignant neoplasm of breast; Z78.0 Asymptomatic menopausal state; Z90.721 Acquired absence of ovaries, unilateral
CPT/HCPCS: 88305; 77065; 19083; A4648